=== PATIENT | female | born 1985 | race Caucasian/White ===

== ENCOUNTER 2020-01-27 12:13 | Outpatient (CLI) | payer OTHER, BC ==
[~2020-01-27 12:13] MED LIST: ALPR0.5T7 PO; CELEXA PO
== END 2020-01-27 23:59 | disposition home or self-care (01) ==
LOC: STAR 12:13
PROVIDERS: ATTEND Anesthesiology
DX: Z01.818 Encounter for other preprocedural examination (principal); Z11.59 Encounter for screening for other viral diseases
CPT/HCPCS: 36415; 87635

== ENCOUNTER 2020-02-01 06:04 | Day surgery (SDC) | payer OTHER, BC ==
[~2020-02-01] VITALS: Ht 167.6 cm; Wt 65.1 kg
[2020-02-01] MEDS ORDERED: LACTATED RINGERS 1,000 ML IV SCH (06:37)
[2020-02-01] MEDS ORDERED: Fish oil PO (06:55)
[2020-02-01] MEDS ORDERED: VITAMIN D PO (06:55)
[2020-02-01] MEDS ORDERED: ASCO500C10 PO (06:55)
[2020-02-01] MEDS ORDERED: primrose PO (06:55)
[2020-02-01] MEDS ORDERED: PREN-53 PO (06:55)
[2020-02-01] MEDS ORDERED: CHLORHEXIDINE 15 ML UDC MM ONE (07:00)
[2020-02-01 07:03] VITALS: BP 113/70
[2020-02-01] MEDS ORDERED: MISOPROSTOL 200 MCG TABLET ONE (07:08)
[2020-02-01] MEDS ORDERED: OXYTOCIN 10 UNITS/ML, 1ML ONE (07:08)
[2020-02-01] MEDS ORDERED: BUPIVACAINE/PF-EPI 0.25% 1:200K ONE (07:09)
[2020-02-01] MEDS ORDERED: METHYLERGONOVINE 0.2 MG/ML IM ONE (07:09)
[2020-02-01] MEDS ORDERED: SILVER NITRATE STICK TP ONE (07:09)
[2020-02-01 07:17] LABS: BASOPHILS # (AUTO) 0.03 x10^3/uL (0-0.1); BASOPHILS % (AUTO) 0 % (0-1); EOSINOPHILS # (AUTO) 0.08 x10^3/uL (0-0.4); EOSINOPHILS % (AUTO) 1 % (1-7); LYMPHOCYTES # (AUTO) 1.68 x10^3/uL (1-3.4); LYMPHOCYTES % (AUTO) 24 % (22-44); MD NO; MEAN CORPUSCULAR HEMOGLOBIN 32.8 pg (27.0-34.8); MEAN CORPUSCULAR HGB CONC 33.1 g/dL (32.4-35.8); MEAN CORPUSCULAR VOLUME 99.2 fL (80-100); MEAN PLATELET VOLUME 6.5 fL (7.4-10.4); MONOCYTES # (AUTO) 0.51 x10^3/uL (0.2-0.8); MONOCYTES % (AUTO) 7 % (2-9); NEUTROPHILS # (AUTO) 4.61 x10^3/uL (1.8-6.8); NEUTROPHILS % (AUTO) 67 % (42-75); PLATELET COUNT 306 x10^3/uL (130-400); RED BLOOD COUNT 4.14 x10^6/uL (3.82-5.3); RED CELL DISTRIBUTION WIDTH 12.9 % (9.6-15.2)
[2020-02-01] MEDS ORDERED: FENTANYL PF 100 MCG/2ML ONE (07:56)
[2020-02-01] MEDS ORDERED: MIDAZOLAM 1 MG/ML, 2ML ONE (07:56)
[2020-02-01] MEDS ORDERED: PROMETHAZINE 25 MG/ML, 1ML IVPush PRN (08:30)
[2020-02-01] MEDS ORDERED: ACETAMINOPHEN 325 MG TABLET PO PRN (08:30)
[2020-02-01] MEDS ORDERED: OXYcodone 5 MG/5 ML ORAL.SOL UDC PO PRN (08:30)
[2020-02-01] MEDS ORDERED: DIAZEPAM 5 MG/ML, 2ML IVPush PRN (08:30)
[2020-02-01] MEDS ORDERED: PROMETHAZINE 25 MG SUPP PR PRN (08:30)
[2020-02-01] MEDS ORDERED: ONDANSETRON 2MG/ML, 2ML IVPush PRN (08:30)
[2020-02-01] MEDS ORDERED: HYDROmorphone 1 MG/ML, 1ML INJ IVPush PRN (08:30)
[2020-02-01] MEDS ORDERED: FENTANYL PF 100 MCG/2ML IV PRN (08:30)
[2020-02-01] MEDS ORDERED: LORazepam 2 MG/ML, 1ML IVPush PRN (08:30)
[2020-02-01] MEDS ORDERED: KETOROLAC 30 MG/1 ML ONE (08:47)
[2020-02-01] MEDS ORDERED: ONDANSETRON 2MG/ML, 2ML ONE (08:47)
[2020-02-01] MEDS ORDERED: PROPOFOL 10 MG/ML, 20ML ONE (08:47)
[2020-02-01] MEDS ORDERED: CEFAZOLIN 1,000 MG ONE (08:47)
[2020-02-01] MEDS ORDERED: DEXAMETHASONE 4 MG/ML, 1ML ONE (08:47)
== END 2020-02-01 09:48 | disposition home or self-care (01) ==
LOC: OUT 06:04
PROVIDERS: ATTEND Obstetrics & Gynecology
DX: O02.0 Blighted ovum and nonhydatidiform mole (principal); Z79.899 Other long term (current) drug therapy; Z98.890 Other specified postprocedural states
CPT/HCPCS: 36415; 59820; 85025; 86850; 86900; 88305; J0690; J1100; J1885; J2210; J2250; J2405; J2704; J3010; J2590